=== PATIENT | male | born 1995 | race Caucasian/White ===

== ENCOUNTER 2020-01-17 12:55 | Emergency (ER) | payer MEDICAID, SELFPAY ==
--- NOTE | 2020-01-17 12:59 | W.ED.GENAD ---
Discharge Plan Disposition Patient Disposition: HOME Condition: Stable Discharge Details Chief Complaint: GenMedical Clinical Impression: Burning sensation of throat Primary Care Provider: Allen Dela Cruz ED Provider: Tati Duarte Home Meds and New Rx's Prescriptions: New famotidine [Pepcid] 20 mg tablet 20 mg PO DAILY Qty: 14 RF: 0 Continued lorazepam 0.5 mg tablet 0.5 mg PO PRN PRNRF: 0 sertraline 25 mg tablet 12.5 mg PO HS RF: 0 albuterol sulfate 90 mcg/actuation HFA aerosol inhaler 2 puff INHALATION .Q4-6H PRNRF: 0 Discharge Instructions Instructions: Gastroesophageal Reflux Disease (ED) Additional Instructions: Drink plenty of fluids and get plenty of rest. Take the Pepcid as directed. Avoid likely triggers for heartburn which include, alcohol, coffee, spicy or acidic foods, peppermint or chocolate. Your primary care doctor on Sunday to schedule a follow-up appointment for reevaluation and for referral to ENT or general surgery for further evaluation including endoscopy if your symptoms persist or worsen. Referrals: Francisco Thorne MD [ [facility] STAFF PHYSICIAN] - Daisha Guidry DO [OSTEOPATHIC DOCTOR] - Discharge Data Discharge Date/Time-TO BE ENTERED AT DEPARTURE: 01/17/20 14:39 Discharge Physician: Tati Duarte Medical Decision Making 24-year-old male who is a smoker, coffee and alcohol drinker with a history of GERD presents for burning sensation in throat and neck and acid taste in mouth for the past several months, worse over the past 2 days. Vitals are within normal limits. He appears nontoxic. He is speaking in full sentences. He denies any chest pain. Normal oropharynx. Lungs clear. Abdomen soft nontender. History and presentation does appear consistent with likely GERD. History and presentation not consistent with strep or viral pharyngitis, pneumonia, or other acute cardiac or pulmonary cause. Discussed that candidiasis could be another possibility but with his history of GERD and multiple triggers in his lifestyle, suspect most likely reflux. Patient was given a GI cocktail with significant relief of symptoms. Patient feels much better is requesting to go home. Do not see indication for any further work-up. He was given a prescription for Pepcid. He was also given follow-up information for ENT and general surgery if he needs laryngoscopy or endoscopy for further evaluation. Medical Records Medical records reviewed: Yes I reviewed the patient's medical records. HPI General Mode of arrival: ambulatory. Date/Time Provider Initiated Documentation: 01/17/20 12:56. Limitations to Documentation: no limitations. Information obtained by: patient. HPI Narrative: Patient is a 24-year-old male with a history of GERD who presents to the ED with a complaint of burning sensation in throat and neck and occasionally in the upper chest with acid taste in mouth that is consistent with his usual presentation of GERD but worse over the past 2 days. Patient states he smokes tobacco, drinks alcohol, drinks 4 cups of coffee daily and often eats spicy or acidic foods. He states he knows these are triggers for his GERD but is having trouble eliminating them from his lifestyle. He has seen his primary care doctor for this and prescribed omeprazole but denies any relief. He currently denies any chest pain, shortness of breath, nausea, vomiting, abdominal pain, fever, cough. He denies any specific sore throat or pain or difficulty with swallowing. Related Data Home Medications Medication Instructions Recorded Confirmed albuterol sulfate 2 puff INHALATION .Q4-6H PRN 01/17/20 01/17/20 famotidine [Pepcid] 20 mg PO DAILY #14 tab 01/17/20 lorazepam 0.5 mg PO PRN PRN 01/17/20 01/17/20 sertraline 12.5 mg PO HS 01/17/20 01/17/20 Previous Rx's Medication Instructions Recorded famotidine [Pepcid] 20 mg PO DAILY #14 tab 01/17/20 Allergies Allergy/AdvReac Type Severity Reaction Status Date / Time Sulfa (Sulfonamide Allergy Severe Anaphylaxsi Unverified 01/17/20 13:14 Antibiotics) s Review of Systems All systems reviewed & are unremarkable except as noted in HPI and below Constitutional Constitutional: Reports as per HPI, Denies chills and Denies fever(s) Eyes Eyes: Denies blurry vision ENT Ears, Nose, Mouth, and Throat: Denies dizziness, Denies sore throat, Denies throat swelling and Reports other (burning pain in throat ) Cardiovascular Cardiovascular: Denies chest pain and Denies dyspnea Respiratory Respiratory: Denies cough and Denies dyspnea Gastrointestinal Gastrointestinal: Denies abdominal pain, Denies diarrhea and Denies vomiting Genitourinary Genitourinary: Denies hematuria and Denies dysuria Musculoskeletal Musculoskeletal: Denies back pain and Denies numbness Integumentary/Breasts Skin/Breast: Denies lesions and Denies rash Neurologic Neurologic: Denies dizziness, Denies localized weakness and Denies numbness Allergic/Immunologic Allergic/Immunologic: Denies throat swelling [facility] Medical History (Updated 01/18/20 @ 10:48 by Tati Duarte DO) GERD (gastroesophageal reflux disease) (Chronic) Surgical History (Updated 01/18/20 @ 09:12 by Tati Duarte DO) No significant past surgical history (Acute) Social History Smoking/Tobacco Use Status: Current every day Drug use: Never Do you feel safe at home: Yes Do you feel safe in your relationship?: Yes Exam Const General: cooperative, healthy appearing and no acute distress HENMT Head: normal to inspection Ears: hearing grossly normal bilaterally and TM's normal bilaterally General nose exam: external nose normal Face and sinus: normal facial exam Throat: posterior oropharynx normal Eyes General: appearance normal, both eyes and all related structures Pupils: PERRL EOM: EOM intact bilaterally Neck Neck: normal visual inspection and No submandibular swelling Lymphatic: no lymphadenopathy noted Chest Chest: normal inspection of the chest and no tenderness Resp Effort & Inspection: normal respiratory effort and able to speak in complete sentences Auscultation: clear to auscultation bilaterally Cardio Rate: regular rate Rhythm: regular rhythm GI Inspection: normal to inspection Palpation: soft, not firm, not rigid and nontender Auscultation: normal bowel sounds Skin General skin exam: no rashes or lesions noted Neuro General: patient alert, patient awake and patient oriented x3 Cognition: normal cognition Speech: speech normal Motor: muscle tone normal throughout Sensory Exam: no sensory deficits noted Extrem General: normal to inspection, full ROM, capillary refill normal, no calf tenderness bilaterally and no edema Psych Appearance: grossly normal Mental Status: mental status grossly normal Speech and Movement: speech and movement normal Affect: normal affect
[2020-01-17 13:06] VITALS: BP 130/73; PULSE 89; RESP 15; TEMP 36.7; O2SAT 98
[2020-01-17 14:40] VITALS: BP 116/69; PULSE 75; RESP 12; TEMP 36.4; O2SAT 97
== END 2020-01-17 14:39 | disposition home or self-care (01) ==
PROVIDERS: Emergency Provider Physician Assistant; PCP Family Medicine
DX: K21.9 Gastro-esophageal reflux disease without esophagitis (principal); R12 Heartburn
CPT/HCPCS: 99283

== ENCOUNTER 2021-06-17 17:09 | Outpatient (REF) | payer MEDICAID, SELFPAY ==
[2021-06-17 21:32] LABS: HCT 45.9 % (40.0-50.0); MCH 28.8 pg (27.0-33.0); MCHC 34.9 % (32.0-36.0); MCV 82.7 fL (80-95); MPV 9.7 fL (8.0-11.0); Platelet Count 259 10^3/uL (130-400); RBC 5.55 10^6/uL (4.36-5.78); RDW 12.3 % (11.8-14.1); RDW-SD 37.2 fL; WBC 6.85 10^3/uL (4.4-10.8)
[2021-06-17 21:53] LABS: ALT 29 U/L (16-63); AST 18 U/L (15-37); Albumin 4.8 g/dL (3.4-5.0); Alkaline Phosphatase 48 U/L (46-116); Anion Gap 7.3 mmol/L (3-11); BUN 13 mg/dL (7-18); Bilirubin, Total 0.7 mg/dL (0.2-1.0); CO2 31.7 mmol/L (21.0-32.0); Calcium 9.3 mg/dL (8.5-10.1); Chloride 102 mmol/L (98-107); Glucose 75 mg/dL (74-106); Potassium 3.8 mmol/L (3.5-5.1); Sodium 141 mmol/L (136-145); TSH (W/Ref FT4) 0.99 uIU/mL (0.36-3.74); Total Protein 7.8 g/dL (6.4-8.2)
[2021-06-20 05:15] LABS: Vitamin D 25 Total 27.5 ng/mL (30-100)
== END 2021-06-17 17:10 | disposition home or self-care (01) ==
LOC: NCHCN 17:09
PROVIDERS: PCP Family Medicine; Visit Provider Nurse Practitioner Family
DX: R11.0 Nausea (principal); F41.8 Other specified anxiety disorders; F32.9 Major depressive disorder, single episode, unspecified
CPT/HCPCS: 80053; 82306; 85027; 83735; 84443

== ENCOUNTER 2021-06-20 14:49 | Outpatient (REF) | payer MEDICAID, SELFPAY | END 2021-06-20 14:50 | disposition home or self-care (01) | LOC: NCHCN 14:49 | PROVIDERS: PCP Family Medicine; Visit Provider Nurse Practitioner Family ==

== ENCOUNTER 2022-08-22 13:32 | Outpatient (REF) | payer MEDICAID, SELFPAY | END 2022-08-22 13:33 | disposition home or self-care (01) | LOC: NCHCN 13:32 | PROVIDERS: PCP Family Medicine; Visit Provider Family Medicine | DX: F41.8 Other specified anxiety disorders (principal); Z13.29 Encounter for screening for other suspected endocrine disorder | CPT/HCPCS: 84443 ==

== ENCOUNTER 2025-01-14 09:46 | Outpatient (REF) | payer MEDICAID, SELFPAY ==
[2025-01-15 10:32] LABS: Lyme Ab w Rflx to Lyme Confirm Negative (Negative)
[2025-01-17 21:09] LABS: B. miyamotoi PCR Negative (Negative); Babesia divergens/MO-1 Negative (Negative); Ehrlichia muris eauclairensis Negative (Negative)
== END 2025-01-14 09:47 | disposition home or self-care (01) ==
LOC: NCHCN 09:46
PROVIDERS: PCP Family Medicine; Visit Provider Family Medicine
DX: R53.83 Other fatigue (principal)
CPT/HCPCS: 87798; 86618